=== PATIENT | male | born 1970 | race African-American/Black ===

== ENCOUNTER 2023-02-12 04:05 | Observation (INO) | payer OTHER ==
[2023-02-12 04:38] LABS: Basophils # (A) 0.1 k/uL (0-0.2); Basophils % (A) 1 %; Eosinophils # (A) 0.2 k/uL (0-0.7); Eosinophils % (A) 3 %; HCT 48.7 % (39.0-53.0); HGB 16.1 gm/dL (13.0-17.5); Lymphocytes # (A) 2.6 k/uL (1.0-4.8); Lymphocytes % (A) 39 %; MCH 32.4 pg (25.0-35.0); Mean Platelet Volume 7.5; Monocytes # (A) 0.5 k/uL (0-1.0); Monocytes % (A) 7 %; Neutrophils # (A) 3.2 k/uL (1.3-7.7); Neutrophils % (A) 48 %; Platelet Count 254 k/uL (150-450); RBC 4.96 m/uL (4.30-5.90); RDW 12.4 % (11.5-15.5); WBC 6.7 k/uL (3.8-10.6)
--- NOTE | 2023-02-12 04:48 | ED ---
Chest Pain HPI - General Chief Complaint: Chest Pain Stated Complaint: Hypertension Time Seen by Provider: 02/12/23 04:30 Source: EMS Mode of arrival: EMS Limitations: no limitations - History of Present Illness Initial Comments: Patient is a 52-year-old male with past history of coronary artery disease who presents to the emergency Department with abnormal vital signs. He is currently residing at [place] for cocaine use. He had some chest pain around 2 AM. Attempted to go back to sleep however continued to feel nauseated and lightheaded. He went to the nurse rechecked his vitals and found that his heart rate was 38. His blood pressure was high. They decided that the patient required transport. He denies any active chest pain. EMS did give him 324 of aspirin. The patient was previously on Coumadin for blood clots however was taken off before going into rehab. He denies any shortness of breath. No other alleviating, precipitating or modifying factors - Related Data Home Medications Medication Instructions Recorded Confirmed Acetaminophen Tab [Tylenol] 650 mg PO Q4H PRN MDD 4 DOSES 02/12/23 02/12/23 Albuterol Sulfate [Albuterol 1 - 2 puff INHALATION RT-Q4H PRN 02/12/23 02/12/23 Sulfate Hfa] Aspirin 81 mg PO DAILY 02/12/23 02/12/23 Atorvastatin Calcium [Lipitor] 80 mg PO HS 02/12/23 02/12/23 Calcium Carb/Mag Ox/Zinc Sulf 1 tab PO TID PRN 02/12/23 02/12/23 [Cue-Pjh-Cjpw 334-134-5 mg Tab] Chlorpheniramine Maleate 4 mg PO Q4H PRN 02/12/23 02/12/23 [Chlor-Trimeton] Fluticasone Nasal [place] [Flonase 1 spray EA NOSTRIL DAILY 02/12/23 02/12/23 Nasal [place]] Fluticasone/Umeclidin/Vilanter 1 puff INHALATION RT-DAILY 02/12/23 02/12/23 [Trelegy Ellipta 100-62.5-25] Furosemide [Lasix] 20 mg PO DAILY 02/12/23 02/12/23 Hyoscyamine Sulfate [Levsin] 0.125 mg PO QID PRN 02/12/23 02/12/23 Loperamide HCl [Imodium A-D] 4 mg PO QID PRN MDD 8 TABS 02/12/23 02/12/23 Magnesium Hydroxide [Milk of 2,400 mg PO BID PRN 02/12/23 02/12/23 Magnesia] Melatonin 5 mg PO HS 02/12/23 02/12/23 Mylanta 30 ml PO Q4H PRN 02/12/23 02/12/23 Sacubitril/Valsartan [Entresto 49 1 tab PO BID 02/12/23 02/12/23 mg-51 mg Tablet] carvediloL [Coreg] 25 mg PO BID 02/12/23 02/12/23 cloNIDine HCL [Catapres] 0.1 - 0.3 mg PO Q4H PRN 02/12/23 02/12/23 hydrALAZINE HCL [Apresoline] 100 mg PO BID 02/12/23 02/12/23 ondansetron HCL [Zofran] 8 mg PO Q6H PRN 02/12/23 02/12/23 Previous Rx's Medication Instructions Recorded Isosorbide Mononitrate ER [Imdur] 30 mg PO DAILY #30 tab 02/13/23 cloNIDine HCL [Catapres] 0.2 mg PO TID #90 tab 02/13/23 Allergies Allergy/AdvReac Type Severity Reaction Status Date / Time No Known Allergies Allergy Verified 02/12/23 07:44 Review of Systems ROS Statement: Those systems with pertinent positive or pertinent negative responses have been documented in the HPI. ROS Other: All systems not noted in ROS Statement are negative. EKG Findings - EKG Comments: EKG Findings:: EKG demonstrates sinus bradycardia with a rate of 50. AR interval is 264. QRS 128. QTC of 417. There is a left bundle branch block. Negative for sgarbossa criteria Past Medical History Past Medical History: Hypertension History of Any Multi-Drug Resistant Organisms: None Reported Past Surgical History: Heart Catheterization With Stent Smoking Status: Smoker, current status unknown Past Alcohol Use History: Occasional Past Drug Use History: Cocaine - Past Family History Mother Family Medical History: Coronary Artery Disease (CAD), Myocardial Infarction (SC) General Exam Limitations: no limitations General appearance: alert, in no apparent distress Head exam: Present: atraumatic, normocephalic, normal inspection Eye exam: Present: normal appearance, PERRL, EOMI. Absent: scleral icterus, conjunctival injection, periorbital swelling ENT exam: Present: normal exam, mucous membranes moist Neck exam: Present: normal inspection. Absent: tenderness, meningismus, lymphadenopathy Respiratory exam: Present: normal lung sounds bilaterally. Absent: respiratory distress, wheezes, rales, rhonchi, stridor Cardiovascular Exam: Present: normal rhythm, bradycardia, normal heart sounds. Absent: systolic murmur, diastolic murmur, rubs, gallop, clicks GI/Abdominal exam: Present: soft, normal bowel sounds. Absent: distended, tenderness, guarding, rebound, rigid Extremities exam: Present: normal inspection, full ROM, normal capillary refill. Absent: tenderness, pedal edema, joint swelling, calf tenderness Back exam: Present: normal inspection Neurological exam: Present: alert, oriented X3, CN II-XII intact Psychiatric exam: Present: normal affect, normal mood Skin exam: Present: warm, dry, intact, normal color. Absent: rash Course Vital Signs 02/12/23 02/12/23 02/12/23 04:24 04:48 06:37 Temperature 98.2 F Pulse Rate 56 L 53 L 60 Pulse Rate [ [employer] ] Respiratory 16 15 17 Rate Blood Pressure 162/105 161/102 159/106 Blood Pressure [Right Arm Supine] O2 Sat by Pulse 95 94 L 94 L Oximetry 02/12/23 02/12/23 02/12/23 07:42 08:00 10:44 Temperature Pulse Rate 53 L 55 L Pulse Rate [ 55 L [employer] ] Respiratory 18 22 Rate Blood Pressure 159/111 Blood Pressure [Right Arm Supine] O2 Sat by Pulse 96 96 Oximetry 02/12/23 02/12/23 02/12/23 11:00 11:54 12:00 Temperature Pulse Rate 55 L 49 L 55 L Pulse Rate [ [employer] ] Respiratory 20 18 21 Rate Blood Pressure 189/118 182/121 182/121 Blood Pressure [Right Arm Supine] O2 Sat by Pulse 97 96 97 Oximetry 02/12/23 02/12/23 02/12/23 13:00 14:00 15:00 Temperature Pulse Rate 51 L 60 58 L Pulse Rate [ [employer] ] Respiratory 12 22 18 Rate Blood Pressure 177/129 185/106 187/113 Blood Pressure [Right Arm Supine] O2 Sat by Pulse 95 97 95 Oximetry 02/12/23 02/12/23 02/12/23 15:17 16:00 17:00 Temperature Pulse Rate 50 L 53 L 57 L Pulse Rate [ [employer] ] Respiratory 18 18 16 Rate Blood Pressure 164/109 164/109 177/107 Blood Pressure [Right Arm Supine] O2 Sat by Pulse 96 Oximetry 02/12/23 02/12/23 02/12/23 18:00 20:00 20:05 Temperature Pulse Rate 68 69 Pulse Rate [ 62 [employer] ] Respiratory 25 H 20 Rate Blood Pressure 185/118 181/100 Blood Pressure [Right Arm Supine] O2 Sat by Pulse 97 Oximetry 02/12/23 02/12/23 02/13/23 23:00 23:49 00:30 Temperature 97.9 F Pulse Rate 65 62 Pulse Rate [ 52 L [employer] ] Respiratory 18 Rate Blood Pressure 200/102 180/100 Blood Pressure 170/88 [Right Arm Supine] O2 Sat by Pulse 97 Oximetry 02/13/23 00:38 Temperature Pulse Rate 69 Pulse Rate [ [employer] ] Respiratory Rate Blood Pressure 168/97 Blood Pressure [Right Arm Supine] O2 Sat by Pulse Oximetry Chest Pain MDM - MDM Was pt. sent in by a medical professional or institution (, PA, ROLL FILLER, urgent care, hospital, or residential...) When possible be specific @ -[facility] Did you speak to anyone other than the patient for history (EMS, parent, family, police, friend...)? What history was obtained from this source @ -EMS Did you review nursing and triage notes (agree or disagree)? Why? @ -I reviewed and agree with nursing and triage notes Were old charts reviewed (outside hosp., previous admission, EMS record, old EKG, old radiological studies, urgent care reports/EKG's, residential records)? Report findings @ -no old charts were reviewed Differential Diagnosis (chest pain, altered mental status, abdominal pain women, abdominal pain men, vaginal bleeding, weakness, fever, dyspnea, syncope, headache, dizziness, GI bleed, back pain, seizure, CVA, palpatations, mental health, musculoskeletal)? @ -acs, stemi, nstemi, coronary vasospasm EKG interpreted by me (3pts min.). @ -yes - sinus arnaldo. no st elevation or depression X-rays interpreted by me (1pt min.). @ -yes, no acute process CT interpreted by me (1pt min.). @ -None done U/S interpreted by me (1pt. min.). @ -None done What testing was considered but not performed or refused? (CT, X-rays, U/S, labs)? Why? @ -None What meds were considered but not given or refused? Why? @ -None Did you discuss the management of the patient with other professionals (professionals i.e. , PA, ROLL FILLER, lab, RT, psych nurse, social worker assistant, real estate closing coordinator, teacher, parachute/combatant diver officer, shoe caser)? Give summary @ -Glendy from [facility] accepted admission of the patient Was smoking cessation discussed for >3mins.? @ -No Was critical care preformed (if so, how long)? @ -No Were there social determinants of health that impacted care today? How? (Homelessness, low income, unemployed, alcoholism, drug addiction, tra nsportation, low edu. Level, literacy, decrease access to med. care, fdc, rehab)? @ -Patient resides in rehab Was there de-escalation of care discussed even if they declined (Discuss DNR or withdrawal of care, Hospice)? DNR status @ -No What co-morbidities impacted this encounter? (DM, HTN, Smoking, COPD, CAD, Cancer, CVA, ARF, Chemo, Hep., AIDS, mental health diagnosis, sleep apnea, morbid obesity)? @ -cocaine use - patient arrives from rehab Was patient admitted / discharged? Hospital course, mention meds given and route, prescriptions, significant lab abnormalities, going to OR and other pertinent info. @ -Arrival patient is placed into room 3. A thorough history and physical exam was performed. Patient is slightly bradycardic with a rate of 50. IV is established and laboratory studies are conducted. Troponin is mildly elevated at 0.044. EKG demonstrates a left bundle branch block. No old EKG to compare to. Chest x-ray demonstrates chronic changes and cardiomegaly. Due to elevated troponin I did recommend admission for cardiac consultation. Patient was agreeable to this. Spoke with Glendy from [facility] to admit the patient Undiagnosed new problem with uncertain prognosis? @ -yes Drug Therapy requiring intensive monitoring for toxicity (Heparin, Nitro, Insulin, Cardizem)? @ -No Were any procedures done? @ -No Diagnosis/symptom? @ -acute chest pain Acute, or Chronic, or Acute on Chronic? @ -acute Uncomplicated (without systemic symptoms) or Complicated (systemic symptoms)? @ -complicated Side effects of treatment? @ -No Exacerbation, Progression, or Severe Exacerbation? @ -No Poses a threat to life or bodily function? How? (Chest pain, USA, SC, pneumonia, PE, COPD, DKA, ARF, appy, cholecystitis, CVA, Diverticulitis, Homicidal, Suicidal, threat to staff... and all critical care pts) @ -yes - chest pain can indicate a coronary event Disposition Clinical Impression: Chest pain, Elevated troponin, Bradycardia Disposition: ADMITTED IP TO THIS [facility] Condition: Stable Is patient prescribed a controlled substance at d/c from ED?: No Time of Disposition: 06:02 Decision to Admit Reason: Admit from EC Decision Date: 02/12/23 Decision Time: 06:02
[2023-02-12 04:49] LABS: ALT 22 U/L (4-49); AST 27 U/L (17-59); African American GFR (CKD) >90 (>60 ml/min/1.73 sqM); Albumin 3.9 g/dL (3.5-5.0); Alkaline Phosphatase 95 U/L (38-126); Anion Gap 11 mmol/L; Blood Urea Nitrogen 15 mg/dL (9-20); Calcium 9.1 mg/dL (8.4-10.2); Carbon Dioxide 23 mmol/L (22-30); Chloride 103 mmol/L (98-107); Glucose 149 mg/dL (74-99); Magnesium 1.9 mg/dL (1.6-2.3); Non-African American GFR(CKD) 84 (>60 ml/min/1.73 sqM); Sodium 137 mmol/L (137-145); Total Bilirubin 0.5 mg/dL (0.2-1.3); Total Protein 7.1 g/dL (6.3-8.2)
[2023-02-12 05:16] LABS: INR 1.3 (<1.2); Partial Thromboplastin Time 27.7 sec (22.0-30.0); Prothrombin Time 12.9 sec (9.0-12.0)
[2023-02-12] MEDS ORDERED: MORPHINE SULFATE 4 MG/ML SYRINGE IV PRN (06:02)
[2023-02-12] MEDS ORDERED: NALOXONE 0.4 MG/ML 1 ML VIAL IV PRN (06:02)
--- NOTE | 2023-02-12 06:08 | XR ---
EXAMINATION TYPE: XR chest 2V DATE OF EXAM: 02/12/2023 COMPARISON: NONE HISTORY: History of hypertension with chest pain. TECHNIQUE: Frontal and lateral views of the chest are obtained. FINDINGS: Background chronic emphysematous change is felt present. There is no suspicious focal air s pace opacity, pleural effusion, or pneumothorax seen. Cardiomegaly is seen. Degenerative change bilat eral glenohumeral joints is noted. IMPRESSION: Chronic changes and cardiomegaly without acute pulmonary process.
--- NOTE | 2023-02-12 10:04 | CA ---
Transthoracic Echo Report Name: Meir Rondon Age: 52 Gender: M : 1970 Exam Date: 02/12/2023 08:26 Exam Location: [facility] Ht (in): 75 Wt (lb): 230 Ordering Physician: Ezra Ramirez MD ([id number]) Attending/Referring Phys: James MOSS Yield Improvement Engineer Diana Bal RDCS Procedure CPT: Indications: Bradycardia and Hypertension Cardiac Hx: hx of stents Technical Quality: Good Contrast 1: Total Dose (mL): Contrast 2: Total Dose (mL): MEASUREMENTS (Male / Female) Normal Values 2D ECHO LV Diastolic Diameter PLAX 5.9 cm 4.2 - 5.9 / 3.9 - 5.3 cm LV Systolic Diameter PLAX 4.9 cm IVS Diastolic Thickness 1.6 cm 0.6 - 1.0 / 0.6 - 0.9 cm LVPW Diastolic Thickness 1.6 cm 0.6 - 1.0 / 0.6 - 0.9 cm LV Relative Wall Thickness 0.6 RV Internal Dim ED PLAX 3.5 cm LA Systolic Diameter LX 4.9 cm 3.0 - 4.0 / 2.7 - 3.8 cm LV Diastolic Volume MOD 4C 161.1 cm??? LV Systolic Volume MOD 4C 82.6 cm??? LV Ejection Fraction MOD 4C 48.7 % LV Diastolic Length 4C 10.1 cm LV Systolic Length 4C 9.3 cm LV Diastolic Volume MOD 2C 177.0 cm??? LV Systolic Volume MOD 2C 125.0 cm??? LV Ejection Fraction MOD 2C 29.4 % LV Diastolic Length 2C 10.0 cm LV Systolic Length 2C 9.3 cm M-MODE Aortic Root Diameter MM 3.7 cm MV E Point Septal Separation 1.4 cm AV Cusp Separation MM 2.2 cm DOPPLER AV Peak Velocity 139.6 cm/s AV Peak Gradient 7.8 mmHg MV Area PHT 4.1 cm??? Mitral E Point Velocity 78.4 cm/s Mitral A Point Velocity 43.2 cm/s Mitral E to A Ratio 1.8 MV Deceleration Time 187.0 ms MV E' Velocity 4.0 cm/s Mitral E to MV E' Ratio 19.5 FINDINGS Left Ventricle Left ventricular ejection fraction is estimated at 40 %. Left ventricular cavity size normal. Moderate concentric left ventricular hypertrophy. Mild to moderate decrease in contractility globally, more so in the inferior wall Right Ventricle Mild right ventricular dilatation. Unable to estimate the right ventricular systolic pressure. Right Atrium Normal right atrial size. Left Atrium Moderately increased left atrial diameter. Mitral Valve Structurally normal mitral valve. Trace to mild mitral regurgitation. Aortic Valve Trileaflet aortic valve. No aortic valve stenosis or regurgitation. Tricuspid Valve Structurally normal tricuspid valve. No tricuspid stenosis, regurgitation or prolapse. Pulmonic Valve Structurally normal pulmonic valve. No pulmonic regurgitation. Pericardium Normal pericardium. No pericardial effusion. Aorta Normal size aortic root and proximal ascending aorta. CONCLUSIONS LV size is normal there is mild to moderate decrease in contractility globally, more so in the inferior wall, possible ischemic cardiomyopathy ejection fractions in the 40-45% range. No regional wall motion abnormality mild right ventricle enlargement mild mitral and tricuspid regurgitation no pulmonary hypertension no pericardial effusion Previewed by: Dr. Ankush Quintana MD (Electronically Signed) Final Date: 12 Feb 2023 10:04
[2023-02-12] MEDS ORDERED: HYOSCYAMINE SULFATE 0.125 MG TAB PO PRN (13:23)
[2023-02-12] MEDS ORDERED: ACETAMINOPHEN TAB 325 MG TAB PO PRN (13:23)
[2023-02-12] MEDS ORDERED: MAG HYDROX/AL HYDROX/SIMETH 30 ML CUP PO PRN (13:23)
[2023-02-12] MEDS ORDERED: MELATONIN 5 MG TABLET PO PRN (13:23)
[2023-02-12] MEDS ORDERED: LOPERAMIDE 2 MG CAP PO PRN (13:23)
[2023-02-12] MEDS ORDERED: ALBUTEROL NEBULIZED 2.5 MG/3 ML INHALATION PRN (13:23)
[2023-02-12] MEDS ORDERED: NON FORMULARY DRUG (Carvedilol [Coreg] 25 MG Tablet) PO SCH (13:30)
--- NOTE | 2023-02-12 13:38 | P.HPIM ---
History of Present Illness 52-year-old male with known history of coronary artery disease, history of cocaine use last cocaine and will use about the 5 days ago came in from [place] [facility] program for drug abuse with complaints of pericardial chest pain pressure-like sensation, denied any lightheadedness or diaphoresis denied any radiation lasted only for a few seconds. Patient is feeling better wanted to go home. Patient has an echocardiogram which showed EF of around 40-45%, no regional wall motion abnormalities. Patient has mild sinus bradycardia. He has mildly elevated troponins of 0.044 and 0.041, cardiology was consulted REVIEW OF SYSTEMS: CONSTITUTIONAL: No fever, no malaise, no fatigue. HEENT: No recent visual problems or hearing problems. Denied any sore throat. CARDIOVASCULAR: No orthopnea, PND, no palpitations, no syncope. PULMONARY: No shortness of breath, no cough, no hemoptysis. GASTROINTESTINAL: No diarrhea, no nausea, no vomiting, no abdominal pain. NEUROLOGICAL: No headaches, no weakness, no numbness. HEMATOLOGICAL: Denies any bleeding or petechiae. GENITOURINARY: Denies any burning micturition, frequency, or urgency. MUSCULOSKELETAL/RHEUMATOLOGICAL: Denies any joint pain, swelling, or any muscle pain. ENDOCRINE: Denies any polyuria or polydipsia. The rest of the 14-point review of systems is negative. PHYSICAL EXAMINATION: GENERAL: The patient is alert and oriented x3, not in any acute distress. Well developed, well nourished. HEENT: Pupils are round and equally reacting to light. EOMI. No scleral icterus. No conjunctival pallor. Normocephalic, atraumatic. No pharyngeal erythema. No thyromegaly. CARDIOVASCULAR: S1 and S2 present. No murmurs, rubs, or gallops. PULMONARY: Chest is clear to auscultation, no wheezing or crackles. ABDOMEN: Soft, nontender, nondistended, normoactive bowel sounds. No palpable organomegaly. MUSCULOSKELETAL: No joint swelling or deformity. EXTREMITIES: No cyanosis, clubbing, or pedal edema. NEUROLOGICAL: Gross neurological examination did not reveal any focal deficits. SKIN: No rashes. Assessment and plan -Possibly of non-ST elevation microinfarction with mildly elevated troponins etiology evaluated the patient etiology of elevated troponins is not clear echocardiogram was done further management as per cardiology. -Hypertension patient will be started on hydralazine patient does have history of Heart failure presently not in acute exacerbation patient has chronic systolic dysfunction. Patient was getting Coreg which will be held because of sinus bradycardia and also recent use of cocaine, if needed, since her Coreg is not beta 2 agonist can be used. -Congestive heart failure chronic systolic dysfunction without any exacerbation -Coronary artery disease: With stents in the past -Hyperlipidemia - COPD without any acute exacerbation DVT prophylaxis: Lovenox Past Medical History Past Medical History: Hypertension History of Any Multi-Drug Resistant Organisms: None Reported Past Surgical History: Heart Catheterization With Stent Smoking Status: Smoker, current status unknown Past Alcohol Use History: Occasional Past Drug Use History: Cocaine Medications and Allergies Home Medications Medication Instructions Recorded Confirmed Type Acetaminophen Tab [Tylenol] 650 mg PO Q4H PRN MDD 4 DOSES 02/12/23 02/12/23 History Albuterol Sulfate [Albuterol 1 - 2 puff INHALATION RT-Q4H PRN 02/12/23 02/12/23 History Sulfate Hfa] Aspirin 81 mg PO DAILY 02/12/23 02/12/23 History Atorvastatin Calcium [Lipitor] 80 mg PO HS 02/12/23 02/12/23 History Calcium Carb/Mag Ox/Zinc Sulf 1 tab PO TID PRN 02/12/23 02/12/23 History [Ghc-Jew-Vvzo 334-134-5 mg Tab] Chlorpheniramine Maleate 4 mg PO Q4H PRN 02/12/23 02/12/23 History [Chlor-Trimeton] Fluticasone Nasal [place] [Flonase 1 spray EA NOSTRIL DAILY 02/12/23 02/12/23 History Nasal [place]] Fluticasone/Umeclidin/Vilanter 1 puff INHALATION RT-DAILY 02/12/23 02/12/23 History [Trelegy Ellipta 100-62.5-25] Furosemide [Lasix] 20 mg PO DAILY 02/12/23 02/12/23 History Hyoscyamine Sulfate [Levsin] 0.125 mg PO QID PRN 02/12/23 02/12/23 History Loperamide HCl [Imodium A-D] 4 mg PO QID PRN MDD 8 TABS 02/12/23 02/12/23 History Magnesium Hydroxide [Milk of 2,400 mg PO BID PRN 02/12/23 02/12/23 History Magnesia] Melatonin 5 mg PO HS 02/12/23 02/12/23 History Mylanta 30 ml PO Q4H PRN 02/12/23 02/12/23 History Sacubitril/Valsartan [Entresto 49 1 tab PO BID 02/12/23 02/12/23 History mg-51 mg Tablet] carvediloL [Coreg] 25 mg PO BID 02/12/23 02/12/23 History cloNIDine HCL [Catapres] 0.1 - 0.3 mg PO Q4H PRN 02/12/23 02/12/23 History hydrALAZINE HCL [Apresoline] 100 mg PO BID 02/12/23 02/12/23 History ondansetron HCL [Zofran] 8 mg PO Q6H PRN 02/12/23 02/12/23 History Allergies Allergy/AdvReac Type Severity Reaction Status Date / Time No Known Allergies Allergy Verified 02/12/23 07:44 Physical Exam Vitals: Vital Signs Temp Pulse Resp BP Pulse Ox 02/12/23 11:54 49 L 18 182/121 96 02/12/23 11:00 55 L 20 189/118 97 02/12/23 10:44 55 L 22 96 02/12/23 08:00 53 L 18 159/111 96 02/12/23 06:37 60 17 159/106 94 L 02/12/23 04:48 53 L 15 161/102 94 L 02/12/23 04:24 98.2 F 56 L 16 162/105 95 Intake and Output 02/11/23 02/12/23 02/12/23 22:59 06:59 14:59 Other: Weight 104.326 kg Results CBC & Chem 7: 02/12/23 04:31 02/12/23 04:31 Labs: Abnormal Lab Results - Last 24 Hours (Table) 02/12/23 02/12/23 02/12/23 Range/Units 04:31 04:31 04:31 PT 12.9 H (9.0-12.0) sec INR 1.3 H (<1.2) Glucose 149 H (74-99) mg/dL Troponin I 0.044 H* (0.000-0.034) ng/mL 02/12/23 02/12/23 Range/Units 09:10 11:24 PT (9.0-12.0) sec INR (<1.2) Glucose (74-99) mg/dL Troponin I 0.041 H* 0.037 H* (0.000-0.034) ng/mL
[2023-02-12] MEDS: hydrALAZINE HCL 50 MG TAB PO SCH (13:46)
[2023-02-12] MEDS: SACUBITRIL/VALSARTAN 49 MG-51 MG TABLET PO SCH (13:46)
[2023-02-12] MEDS ORDERED: FUROSEMIDE 10 MG/ML 2 ML VIAL IV STA (18:48)
[2023-02-12] MEDS ORDERED: NON FORMULARY DRUG (Carvedilol [Coreg] 25 MG) PO SCH (20:00)
[2023-02-12] MEDS: ATORVASTATIN 80 MG TAB PO SCH (20:41)
[2023-02-12] MEDS ORDERED: hydrALAZINE HCL 20 MG/ML 1 ML VIAL IVP PRN (23:33)
[2023-02-12] MEDS: cloNIDine HCL 0.2 MG TAB PO SCH (23:41)
[2023-02-13] MEDS: hydrALAZINE HCL 50 MG TAB PO SCH ×2 (00:06→09:03)
[2023-02-13] MEDS: SACUBITRIL/VALSARTAN 49 MG-51 MG TABLET PO SCH ×2 (00:12→09:03)
[2023-02-13 00:58] VITALS: RESP 18
[2023-02-13 03:21] VITALS: TEMP 98.2
[2023-02-13] MEDS: IPRATROPIUM 0.5 MG/2.5 ML NEBU INHALATION SCH ×2 (06:12→13:03)
[2023-02-13] MEDS ORDERED: SYMBICORT 80-4.5 MCG INHALER INHALATION SCH (08:00)
[2023-02-13 08:10] LABS: Basophils # (A) 0.1 k/uL (0-0.2); Basophils % (A) 1 %; Eosinophils # (A) 0.2 k/uL (0-0.7); Eosinophils % (A) 3 %; HCT 49.2 % (39.0-53.0); HGB 15.9 gm/dL (13.0-17.5); Lymphocytes % (A) 35 %; MCHC 32.3 g/dL (31.0-37.0); MCV 99.2 fL (80.0-100.0); Mean Platelet Volume 7.5; Monocytes # (A) 0.6 k/uL (0-1.0); Monocytes % (A) 11 %; Neutrophils # (A) 2.8 k/uL (1.3-7.7); Neutrophils % (A) 48 %; Platelet Count 246 k/uL (150-450); RBC 4.96 m/uL (4.30-5.90); RDW 12.3 % (11.5-15.5); WBC 5.8 k/uL (3.8-10.6)
[2023-02-13 08:32] LABS: African American GFR (CKD) >90 (>60 ml/min/1.73 sqM); Anion Gap 8 mmol/L; Blood Urea Nitrogen 17 mg/dL (9-20); Calcium 9.1 mg/dL (8.4-10.2); Carbon Dioxide 28 mmol/L (22-30); Chloride 100 mmol/L (98-107); Glucose 136 mg/dL (74-99); Non-African American GFR(CKD) 88 (>60 ml/min/1.73 sqM); Potassium 4.2 mmol/L (3.5-5.1); Sodium 136 mmol/L (137-145)
[2023-02-13] MEDS ORDERED: ASPIRIN 81 MG PO SCH (09:00)
[2023-02-13] MEDS ORDERED: FUROSEMIDE 20 MG TAB PO SCH (09:00)
[2023-02-13] MEDS ORDERED: ENOXAPARIN 40 MG/0.4 ML SYRINGE SQ SCH (09:00)
[2023-02-13] MEDS: cloNIDine HCL 0.2 MG TAB PO SCH (09:03)
[2023-02-13] MEDS ORDERED: ISOSORBIDE MONONITRATE ER 30 MG TAB.ER.24H PO SCH (10:00)
--- NOTE | 2023-02-13 11:25 | CONS ---
CONSULTATION CHIEF COMPLAINT: Chest pain, bruises. HISTORY OF PRESENT ILLNESS: This is a 52-year-old gentleman, I saw him in the emergency room when he presented from [facility]. The patient had an episode of chest discomfort that brought him to the ER, but at the time of my evaluation, he was comfortable at rest and free of symptoms. We did not have a list of his medications at that time. His first set of troponin was elevated at 0.04 and we were awaiting for the blood test. The patient has a history of coronary artery disease and has had prior multivessel angioplasty and also carries a history of congestive heart failure. He was using crack cocaine up until 5 days ago, had been in rehab for 4 days. His EKG shows sinus bradycardia with anterolateral ST-T wave changes. The plan is to obtain serial troponins, obtain an echocardiogram and review of his records and decide on further course of action. PAST MEDICAL HISTORY: Significant for coronary artery disease status post prior angioplasty, cardiomyopathy with congestive heart failure, hypertension, dyslipidemia, and COPD. CURRENT MEDICATIONS: 1. Zofran. 2. Tylenol. 3. Magnesium. 4. Imodium. 5. Levsin. 6. Catapres. 7. Flonase. 8. Coreg. 9. Entresto. 10.Lipitor. 11.Sulfa. ALLERGIES: There are no known drug allergies. FAMILY HISTORY: Negative for premature coronary artery disease. SOCIAL HISTORY: Significant for drug abuse. REVIEW OF SYSTEMS: A review of systems has been performed, pertinence are as documented. PHYSICAL EXAMINATION: GENERAL: The patient is comfortable at rest. VITAL SIGNS: Blood pressure is elevated at 177/110, respirations 18, O2 sat is 96%. NECK: There is no jugular venous distention. Carotid upstroke is normal. There is no bruit. CHEST: Reveals good air entry bilaterally. HEART: Reveals first and second heart sounds. No gallop, no murmur. ABDOMEN: Soft, nontender. EXTREMITIES: Did not reveal any edema. Peripheral pulses are felt. LABORATORY DATA: As described above. Hemoglobin is normal. Platelet count is normal. Potassium is normal. Creatinine is normal. Troponin is slightly elevated. ASSESSMENT: 1. Acute onl-GF-ossyyay elevation PR. 2. Severe uncontrolled hypertension. 3. Recent crack cocaine use. PLAN: Will review his medications once they are available. Will obtain his records, obtain a 2D echo, run his troponins and decide on further course of action. MMCLAUDIA / IJN: [id number] /
--- NOTE | 2023-02-13 11:49 | CONS ---
CONSULTATION HISTORY OF PRESENT ILLNESS: Meir is a 52-year-old gentleman with history of coronary artery disease, status post prior angioplasty; cardiomyopathy; and congestive heart failure; who was in [facility] and was brought into hospital with episodes of chest pain. His EKG showed sinus rhythm with extensive anterolateral ST-T wave changes. I do not have an old EKG to compare wit. H his troponins have come back slightly elevated at 0.04, 0.04, and 0.03. The patient was using crack cocaine and has used it about 5 days prior to coming in. He had been in the rehab for 4 days. I do not have his records, but given the cardiomyopathy and elevated troponins, I talked to him about undergoing invasive angiography. Understanding risks and benefits, the patient does not wish to have any catheterization done, but will continue with the aggressive medical therapy that he is off. Will continue the aspirin, Lipitor, Catapres, Apresoline, and Entresto that he is on. I am going to add nitrates in the form of Imdur 30 mg daily. PHYSICAL EXAMINATION: GENERAL: On exam today, he is comfortable at rest. VITAL SIGNS: Heart rate is 45 beats per minute, blood pressure is 160/93, respiratory rate is 18, O2 saturation is 96%. NECK: There is no jugular venous distention. Carotid upstroke is normal. There is no bruit. CHEST: Exam reveals good air entry bilaterally. HEART: Exam reveals first and second heart sounds. No gallop. No murmur. ABDOMEN: Soft. EXTREMITIES: Did not reveal any edema. Peripheral pulses are felt. LABORATORY DATA: Labs show that the potassium is 4.2, creatinine is 0.9, hemoglobin is 15.9. Echocardiogram on this admission revealed LV systolic dysfunction with an ejection fraction of 40% to 45%. ASSESSMENT AND PLAN: 1. Coronary artery disease, status post prior angioplasties. 2. Pericardial chest pain with elevated troponin in a patient who has recently used crack cocaine. 3. History of congestive heart failure. 4. Uncontrolled hypertension. PLAN: The patient opted for conservative medical therapy at this time. I will add nitrates to what he is on. Increase the dose of clonidine for better blood pressure control. He is stable to be transferred back to rehab. MMODL / IJN: [id number] /
[2023-02-13 13:07] VITALS: BP 146/84
[2023-02-13 14:22] VITALS: PULSE 50
--- NOTE | 2023-02-13 15:16 | DS ---
DISCHARGE SUMMARY FINAL DIAGNOSES: 1. Possible acute mxw-BJ-eybtxux-elevation myocardial infarction, possibly secondary to cocaine. 2. Hypertension. 3. Congestive heart failure history. 4. History of coronary artery disease. 5. Multiple medical issues. DISCHARGE DISPOSITION: The patient will be discharged in stable condition and guarded prognosis. Cardiology cleared the patient for discharge. The patient refused cardiac cath. HISTORY OF PRESENT ILLNESS: A 52-year-old gentleman was admitted with the features of acute udb-WA-pmbxiye- elevation myocardial infarction with some vague chest pains and hypertension. The patient was seen by Cardiology who recommended cardiac cath. The patient refused. The patient is extremely keen on going home, so the patient will be discharged in stable condition and extremely guarded prognosis. The patient states he will follow up with the primary physician as well as Cardiology. DISCHARGE PHYSICAL EXAMINATION: VITAL SIGNS: Stable. CARDIOVASCULAR: S1, S2. ABDOMEN: Soft. NERVOUS SYSTEM: No focal deficits. DISCHARGE MEDICATIONS: Continue with the previous medications as well as clonidine and Imdur. Continue with antiplatelet agents. Once again, the patient will be discharged in stable condition with guarded prognosis to substance abuse rehab. MMBHARTIL / IJN: [id number] /
[2023-02-13] MEDS ORDERED: cloNIDine HCL 0.2 MG TAB PO SCH (16:00)
== END 2023-02-13 15:01 | disposition other institution (70) ==
LOC: EC 04:05 → 3SCARD 06:04 → INTOOBSV 02-13 09:39 → OBSVTOIN 02-13 09:39 → UNDODISOB 02-13 15:05 → UNDODISIN 02-13 15:05
PROVIDERS: ADMIT Hospitalist; ATTEND Hospitalist
DX: R07.89 Other chest pain (principal); I25.10 Atherosclerotic heart disease of native coronary artery without angina pectoris; I44.7 Left bundle-branch block, unspecified; F17.200 Nicotine dependence, unspecified, uncomplicated; J43.9 Emphysema, unspecified; M19.012 Primary osteoarthritis, left shoulder; I11.0 Hypertensive heart disease with heart failure; I50.22 Chronic systolic (congestive) heart failure; M19.011 Primary osteoarthritis, right shoulder; E78.5 Hyperlipidemia, unspecified; I34.0 Nonrheumatic mitral (valve) insufficiency; F14.10 Cocaine abuse, uncomplicated; Z79.899 Other long term (current) drug therapy; Z79.82 Long term (current) use of aspirin; Z95.5 Presence of coronary angioplasty implant and graft; Z82.49 Family history of ischemic heart disease and other diseases of the circulatory system
CPT/HCPCS: 96372; 96374; 99285; 36415; 94640 ×2; 93005; 93306; 80053; 80048; 84443; 83735; 84484; 85025 ×2; 85610; 85730; 71046; G0378 ×2; J1940; J1650